=== PATIENT | female | born 1980 | race African-American/Black ===

== ENCOUNTER 2019-09-12 13:06 | Emergency (ER) | payer OTHER ==
[2019-09-12 13:14] VITALS: BMI 33.3
[2019-09-12] MEDS ORDERED: KETOROLAC TROMETHAMINE 30 MG/1 ML VIAL IVPUSH ONE (13:30)
[2019-09-12] MEDS ORDERED: PANTOPRAZOLE SODIUM 40 MG VIAL IVPUSH ONE (13:30)
[2019-09-12] MEDS ORDERED: ONDANSETRON 4 MG/2 ML VIAL IVPUSH ONE (13:30)
[2019-09-12] MEDS ORDERED: SODIUM CHLORIDE 1,000 ML IV STA (13:30)
[2019-09-12] MEDS ORDERED: PANTOPRAZOLE SODIUM 40 MG/100 ML BAG IVPB ONE (14:00)
[2019-09-12] MEDS ORDERED: ONDANSETRON 4 MG/2 ML VIAL ONE (14:00)
[2019-09-12 14:09] LABS: BASO % 1.2 % (0-2.0); EOS % 5.3 % (0-4.5); HEMATOCRIT 32.6 % (32.4-45.2); HEMOGLOBIN 10.6 GM/dL (10.7-15.3); LYMPH % 30.3 % (8-40); MCH 27.1 pg (25.7-33.7); MCHC 32.4 g/dl (32.0-36.0); MEAN CELL VOLUME 83.6 fl (80-96); MEAN PLT VOLUME 7.3 fl (7.5-11.1); MONO % 15.5 % (3.8-10.2); NEUT % 47.7 % (42.8-82.8); PLATELET COUNT 281 K/MM3 (134-434); RDW 15.3 % (11.6-15.6); WHITE BLOOD COUNT 5.1 K/mm3 (4.0-10.0)
[2019-09-12 14:15] LABS: PH,URINE 8.5 (5.0-8.0); URINE APPEARANCE CLEAR; URINE BILIRUBIN NEGATIVE (NEGATIVE); URINE COLOR YELLOW; URINE GLUCOSE (UA) NEGATIVE (NEGATIVE); URINE KETONE NEGATIVE (NEGATIVE); URINE LEUK ESTERASE NEGATIVE (NEGATIVE); URINE NITRITE NEGATIVE (NEGATIVE); URINE PROTEIN NEGATIVE (NEGATIVE); URINE UROBILINOGEN 0.2 mg/dL (0.2-1.0)
[2019-09-12 14:37] LABS: ALBUMIN 2.9 g/dl (3.4-5.0); BILIRUBIN,TOTAL 0.2 mg/dL (0.2-1); BLOOD UREA NITROGEN 7.4 mg/dL (7-18); CALCIUM 8.2 mg/dL (8.5-10.1); CREATININE 0.6 mg/dL (0.55-1.3); POTASSIUM 4.3 mmol/L (3.5-5.1); TOT PROT 6.5 g/dl (6.4-8.2)
[2019-09-12] MEDS ORDERED: KETOROLAC TROMETHAMINE 30 MG/1 ML VIAL ONE (14:54)
--- NOTE | 2019-09-12 15:43 | PDOC ---
History of Present Illness <JaydaVanessarolando Silva - Last Filed: 09/12/19 17:01> - General History Source: Patient Exam Limitations: No Limitations - History of Present Illness Travel History: No Initial Comments: 09/12/19 15:40 8 years ago along with history of GERD and PUD presents the ED with complaints of epigastric burning with sharp intermittent pain worsened after meals. Patient states continues to take her Nexium and went to a local ER yesterday but was sent home after receiving medications. Patient states symptoms did resolve after receiving medications but returned today and so decided come to another ER for an opinion. Patient denies fever, chills, diarrhea but does state vomited x2 since yesterday. Patient denies recent travel, recent illness , drug or alcohol use. Patient does state history of cholecystectomy and denies any history of pancreatitis constipation or history of bowel obstruction. Patient denies bloody stool or blood noted in her emesis last evening when she vomited Timing/Duration: reports: constant Quality: reports: moderate, burning Abdominal Pain Onset Location: reports: epigastric Pain Radiation: reports: RUQ Activities at Onset: reports: none Aggravating Factors: improves with: Eating Alleviating Factors: improves with: None <Kayla Urias - Last Filed: 09/12/19 17:54> - General Chief Complaint: Pain Stated Complaint: ABD PAIN Time Seen by Provider: 09/12/19 13:25 Past History <MontelongoVanessarolando Silva - Last Filed: 09/12/19 17:01> - Travel Traveled outside of the country in the last 30 days: No Close contact w/someone who was outside of country & ill: No - Past Medical History COPD: No - Surgical History Abdominal Surgery: Yes (HERNIA) Gastric Stapling: Yes (GASTRIC BYPASS) - Psycho Social/Smoking Cessation Hx Smoking History: Never smoked Patient Lives Alone: Yes Lives with/in: lives alone <Kayla Urias - Last Filed: 09/12/19 17:54> - Past Medical History Allergies/Adverse Reactions: Allergies Allergy/AdvReac Type Severity Reaction Status Date / Time No Known Allergies Allergy Verified 09/12/19 13:14 Abd/GI Specific PMHX - Complaint Specific PMHX GERD: Yes GI Ulcer Disease: Yes <Kayla Urias - Last Filed: 09/12/19 17:54> Review of Systems - Review of Systems Able to Perform ROS?: Yes Constitutional: No: Symptoms Reported HEENTM: No: Symptoms Reported Respiratory: No: Symptoms reported Cardiac (ROS): No: Symptoms Reported ABD/GI: Yes: Nausea, Vomiting, Indigestion. No: Constipated, Diarrhea : No: Symptoms Reported Musculoskeletal: No: Symptoms Reported Integumentary: No: Symptoms Reported Neurological: No: Symptoms reported <Kayla Urias - Last Filed: 09/12/19 17:54> *Physical Exam - Vital Signs Last Vital Signs Temp Pulse Resp BP Pulse Ox 98 F 66 18 142/75 89 L 09/12/19 13:10 09/12/19 13:10 09/12/19 13:10 09/12/19 13:10 09/12/19 13:10 <Vanessa Montelongo - Last Filed: 09/12/19 17:01> - Vital Signs Last Vital Signs Temp Pulse Resp BP Pulse Ox 98 F 66 18 142/75 89 L 09/12/19 13:10 09/12/19 13:10 09/12/19 13:10 09/12/19 13:10 09/12/19 13:10 - Physical Exam General Appearance: Yes: Nourished, Appropriately Dressed. No: Apparent Distress HEENT: negative: Pale Conjunctivae Neck: positive: Normal Thyroid, Supple Respiratory/Chest: positive: Lungs Clear, Normal Breath Sounds. negative: Respiratory Distress, Accessory Muscle Use Cardiovascular: positive: Regular Rhythm, Regular Rate. negative: Murmur Gastrointestinal/Abdominal: positive: Normal Bowel Sounds, Soft, Tenderness ( Epigastric and right upper quadrant). negative: Distended, Guarding, Rebound Integumentary: positive: Normal Color, Warm, Moist Neurologic: positive: Motor Strength 5/5 (Ambulatory) <Ulices Uriasa - Last Filed: 09/12/19 17:54> ED Treatment Course - LABORATORY CBC & Chemistry Diagram: 09/12/19 13:55 09/12/19 13:55 - ADDITIONAL ORDERS Additional order review: Laboratory Results 09/12/19 09/12/19 09/12/19 13:57 13:57 13:55 Sodium 139 Potassium 4.3 Chloride 109 H Carbon Dioxide 25 Anion Gap 5 L BUN 7.4 Creatinine 0.6 Est GFR (CKD-EPI)AfAm 133.07 Est GFR (CKD-EPI)NonAf 114.82 Random Glucose 78 Calcium 8.2 L Magnesium 2.0 Total Bilirubin 0.2 AST 36 ALT 71 H Alkaline Phosphatase 70 Total Protein 6.5 Albumin 2.9 L Lipase 72 L Urine Color Yellow Urine Appearance Clear Urine pH 8.5 H Ur Specific [place] 1.021 Urine Protein Negative Urine Glucose (UA) Negative Urine Ketones Negative Urine Blood Negative Urine Nitrite Negative Urine Bilirubin Negative Urine Urobilinogen 0.2 Ur Leukocyte Esterase Negative Urine HCG, Qual Negative 09/12/19 13:55 RBC 3.90 MCV 83.6 MCHC 32.4 RDW 15.3 MPV 7.3 L Neutrophils % 47.7 Lymphocytes % 30.3 Monocytes % 15.5 H Eosinophils % 5.3 H Basophils % 1.2 - Medications Given in the ED: ED Medications Discontinued Medications Generic Name Dose Route Start Last Admin Trade Name Freq PRN Reason Stop Dose Admin Sodium Chloride 1,000 mls @ 1,000 mls/hr 09/12/19 13:30 09/12/19 14:00 Normal Saline - IV 09/12/19 14:29 1,000 mls/hr ASDIR STA Administration Ketorolac Tromethamine 30 mg 09/12/19 13:30 09/12/19 15:00 Toradol Injection - IVPUSH 09/12/19 13:31 30 mg ONCE ONE Administration Ondansetron HCl 4 mg 09/12/19 13:30 09/12/19 14:00 Zofran Injection IVPUSH 09/12/19 13:31 4 mg ONCE ONE Administration Pantoprazole Sodium 40 mg 09/12/19 13:30 09/12/19 14:15 Protonix Iv IVPUSH 09/12/19 13:31 40 mg ONCE ONE Administration <Vanessa Montelongo - Last Filed: 09/12/19 17:01> - LABORATORY CBC & Chemistry Diagram: 09/12/19 13:55 09/12/19 13:55 - ADDITIONAL ORDERS Additional order review: Laboratory Results 09/12/19 09/12/19 09/12/19 13:57 13:57 13:55 Sodium 139 Potassium 4.3 Chloride 109 H Carbon Dioxide 25 Anion Gap 5 L BUN 7.4 Creatinine 0.6 Est GFR (CKD-EPI)AfAm 133.07 Est GFR (CKD-EPI)NonAf 114.82 Random Glucose 78 Calcium 8.2 L Magnesium 2.0 Total Bilirubin 0.2 AST 36 ALT 71 H Alkaline Phosphatase 70 Total Protein 6.5 Albumin 2.9 L Lipase 72 L Urine Color Yellow Urine Appearance Clear Urine pH 8.5 H Ur Specific [place] 1.021 Urine Protein Negative Urine Glucose (UA) Negative Urine Ketones Negative Urine Blood Negative Urine Nitrite Negative Urine Bilirubin Negative Urine Urobilinogen 0.2 Ur Leukocyte Esterase Negative Urine HCG, Qual Negative 09/12/19 13:55 RBC 3.90 MCV 83.6 MCHC 32.4 RDW 15.3 MPV 7.3 L Neutrophils % 47.7 Lymphocytes % 30.3 Monocytes % 15.5 H Eosinophils % 5.3 H Basophils % 1.2 - RADIOLOGY Radiology Studies Ordered: Category Date Time Status ABDOMEN & PELVIS CT WITH CONTR [CT] Stat CT Scan 09/12/19 15:38 Ordered - Medications Given in the ED: ED Medications Discontinued Medications Generic Name Dose Route Start Last Admin Trade Name Freq PRN Reason Stop Dose Admin Sodium Chloride 1,000 mls @ 1,000 mls/hr 09/12/19 13:30 09/12/19 14:00 Normal Saline - IV 09/12/19 14:29 1,000 mls/hr ASDIR STA Administration Ketorolac Tromethamine 30 mg 09/12/19 13:30 09/12/19 15:00 Toradol Injection - IVPUSH 09/12/19 13:31 30 mg ONCE ONE Administration Ondansetron HCl 4 mg 09/12/19 13:30 09/12/19 14:00 Zofran Injection IVPUSH 09/12/19 13:31 4 mg ONCE ONE Administration Pantoprazole Sodium 40 mg 09/12/19 13:30 09/12/19 14:15 Protonix Iv IVPUSH 09/12/19 13:31 40 mg ONCE ONE Administration <Kayla Urias - Last Filed: 09/12/19 17:54> Medical Decision Making - Medical Decision Making The patient was seen and evaluated in conjunction with midlevel provider under my direct supervision, ancillary studies were reviewed. I agree with the plan as outlined with HARLEY Urias. HPI, workup/dispo as outlined. VS reviewed, wnl. labs /workup, CT imaging given AP. 09/12/19 17:01 <Vanessa Montelongo - Last Filed: 09/12/19 17:01> - Medical Decision Making 09/12/19 14:44 Chief complaint: Epigastric pain associated 2 episodes of vomiting last night. Patient unsure if this is related to her gastritis or ulcer disease. Patient states took Nexium this morning with no relief. No other complaints. Exam: Mild right upper quadrant tenderness with epigastric tenderness. Otherwise normal exam vital signs stable repeat O2 sat 97% on room air Plan: Labs, urine, IV Protonix, Toradol IV fluids and will consider imaging if needed 09/12/19 15:46 Laboratory Tests 09/12/19 09/12/19 09/12/19 13:55 13:55 13:57 WBC 5.1 Hgb 10.6 L Hct 32.6 MPV 7.3 L Absolute Neuts (auto) 2.4 Neutrophils % 47.7 Lymphocytes % 30.3 Monocytes % 15.5 H Eosinophils % 5.3 H Sodium 139 Potassium 4.3 Chloride 109 H Carbon Dioxide 25 Anion Gap 5 L Calcium 8.2 L Magnesium 2.0 Total Bilirubin 0.2 AST 36 ALT 71 H Urine pH Ur Specific [place] Urine Nitrite Urine Bilirubin Urine HCG, Qual Negative 09/12/19 13:57 WBC Hgb Hct MPV Absolute Neuts (auto) Neutrophils % Lymphocytes % Monocytes % Eosinophils % Sodium Potassium Chloride Carbon Dioxide Anion Gap Calcium Magnesium Total Bilirubin AST ALT Urine pH 8.5 H Ur Specific [place] 1.021 Urine Nitrite Negative Urine Bilirubin Negative Urine HCG, Qual Patient continues with discomfort to epigastric area. Patient ordered for abdominal CT with IV contrast only 09/12/19 17:51 CAT scan of the abdomen shows status post gastric surgery. Patient has a midline epigastric ventral hernia containing fat and a small portion of the left hepatic lobe. A separate umbilical hernia is also noted. The gallbladder is not visualized possibly based on a postsurgical basis. A small amount of pelvic free fluid is noted. There is also a 2 x 1 cm in eluding right ovarian cyst. Patient states has taken Percocet in the past and will prescribe that for discharge along with a surgical referral. Patient will be given a dose before discharge. <Kayla Urias - Last Filed: 09/12/19 17:54> Discharge <Vanessa Montelongo - Last Filed: 09/12/19 17:01> - Discharge Information Problems reviewed: Yes <Kayla Urias - Last Filed: 09/12/19 17:54> - Discharge Information Clinical Impression/Diagnosis: Ventral hernia, Umbilical hernia Condition: Improved Disposition: HOME - Follow up/Referral Referrals: Parth Shabazz MD [Staff Physician] - - Patient Discharge Instructions Patient Printed Discharge Instructions: DI for Ventral Hernia Additional Instructions: Please provide splinting and pressure when coughing or with excessive movement to prevent pain. Eat a high-fiber diet and follow-up with referred surgeon. Take Percocet as needed for pain
[2019-09-12 17:31] VITALS: TEMP 97.7
[2019-09-12 18:02] VITALS: BP 112/70; PULSE 68
== END 2019-09-12 18:13 | disposition home or self-care (01) ==
LOC: JER 13:06
PROC: 3E0333Z Introduction of Anti-inflammatory into Peripheral Vein, Percutaneous Approach (ICD-10-PCS; principal; 2019-09-12)
PROC: 3E033GC Introduction of Other Therapeutic Substance into Peripheral Vein, Percutaneous Approach (ICD-10-PCS; 2019-09-12)
DX: K43.9 Ventral hernia without obstruction or gangrene (principal); K42.9 Umbilical hernia without obstruction or gangrene; Z98.84 Bariatric surgery status; K21.9 Gastro-esophageal reflux disease without esophagitis
CPT/HCPCS: 36415; 74177-TC; 80053; 81003; 83690; 83735; 84703; 85025; 87086; 99284-25; J7030; Q9967

== ENCOUNTER 2022-07-18 19:37 | Emergency (ER) | payer OTHER ==
[2022-07-18 19:52] VITALS: BP 140/70; PULSE 68; RESP 18; TEMP 98.1; BMI 25.0
[2022-07-18] MEDS ORDERED: FAMOTIDINE 20 MG/50 ML IVPB 20 MG/50 ML MG IVPB ONE (20:21)
[2022-07-18] MEDS ORDERED: MAG HYDROX/AL HYDROX/SIMETH 30 ML UNIT-DOSE CUP PO ONE (20:21)
[2022-07-18] MEDS ORDERED: FAMOTIDINE 10 MG TABLET PO ONE (20:31)
[2022-07-18] MEDS ORDERED: ACETAMINOPHEN 500 MG TABLET (FP) PO ONE (20:31)
[2022-07-18] MEDS ORDERED: FAMOTIDINE 10 MG TABLET ONE (20:34)
[2022-07-18] MEDS ORDERED: ACETAMINOPHEN 325 MG TABLET (FP) ONE (20:34)
[2022-07-18] MEDS ORDERED: MAG HYDROX/AL HYDROX/SIMETH 30 ML UNIT-DOSE CUP ONE (20:35)
[2022-07-18 21:59] LABS: BASO % 0.7 % (0-2.0); EOS % 0.5 % (0-4.5); HEMATOCRIT 32.9 % (32.4-45.2); HEMOGLOBIN 10.1 GM/dL (10.7-15.3); LYMPH % 19.1 % (8-40); MCH 21.8 pg (25.7-33.7); MCHC 30.6 g/dl (32.0-36.0); MEAN CELL VOLUME 71.1 fl (80-96); MEAN PLT VOLUME 6.9 fl (7.5-11.1); MONO % 13.7 % (3.8-10.2); PLATELET COUNT 370 10^3/uL (134-434); RBC 4.62 M/mm3 (3.60-5.2); RDW 19.2 % (11.6-15.6); WHITE BLOOD COUNT 7.9 K/mm3 (4.0-10.0)
[2022-07-18 22:08] LABS: CHLORIDE 107 mmol/L (98-107); SODIUM 140 mmol/L (136-145)
[2022-07-18 22:10] LABS: INR 0.99 (0.83-1.09); PROTHROMBIN TIME (PATIENT) 11.4 SEC (9.7-13.0)
[2022-07-18 22:11] LABS: ANION GAP 7 MMOL/L (8-16); BLOOD UREA NITROGEN 12.7 mg/dL (7-18); CALCIUM 8.9 mg/dL (8.5-10.1); CO2 27 mmol/L (21-32); GLUCOSE,RANDOM 92 mg/dL (74-106); LIPASE 150 U/L (73-393)
[2022-07-18 22:13] LABS: ACTIVATED PTT 30.6 SECONDS (25.2-36.5)
[2022-07-18 22:14] LABS: CREATININE 0.8 mg/dL (0.55-1.3); SGOT/AST 29 U/L (15-37); SGPT/ALT 43 U/L (13-61)
[2022-07-18 22:15] LABS: BILIRUBIN,TOTAL 0.2 mg/dL (0.2-1); TOT PROT 6.3 g/dl (6.4-8.2)
[2022-07-18 22:17] LABS: ALK PHOS 54 U/L (45-117)
[2022-07-18 22:25] LABS: ANISOCYTOSIS 3+; MACROCYTOSIS 0; OVALOCYTE 1+; TARGET CELLS 1+
== END 2022-07-19 01:23 | disposition home or self-care (01) ==
LOC: JER 19:37
DX: R10.84 Generalized abdominal pain (principal); R20.2 Paresthesia of skin; M21.332 Wrist drop, left wrist
CPT/HCPCS: 36415; 74177-TC; 80053; 83690; 84702; 85025; 85610; 85730; 99285-25; C9803-CS; Q9967; U0003; U0005